=== PATIENT | male | born 1995 | race Caucasian/White ===

== ENCOUNTER 2020-02-01 03:55 | Emergency (ER) | payer OTHER, SELFPAY ==
[2020-02-01 04:06] VITALS: BP 138/79; PULSE 97; RESP 16; TEMP 36.8; O2SAT 98; BMI 18.3
--- NOTE | 2020-02-01 04:12 | ED_ITS ---
HPI - Wound/Laceration General: Chief Complaint: Wound/Laceration Stated Complaint: LIP LAC Time Seen by Provider: 02/01/20 04:09 History of Present Illness: HPI narrative: Mr. Barber is a nice 24-year-old male who was wrestling shortly before arrival when his bottom tooth came up and poked him in the right upper inside portion of his lip. He denies any tooth being loose. He denies any other injuries to his head, neck or otherwise. He came in concerned because he can feel a small cut on the inside of his lip. Review of Systems General: Reports: 10 or more systems reviewed and unremarkable except in HPI and below PFSH ED PFSH: Medical History No pertinent past medical history Social History Smoking and tobacco status: current every day smoker Physical Exam Const: COMMON NORMALS: no apparent distress, oriented x3, no limitations, healthy appearing and well nourished EXAM LIMITATIONS: no altered mental status GENERAL APPEARANCE: cooperative, well kempt and well developed ORIENTATION/CONSCIOUSNESS: Yes awake HENMT: COMMON NORMALS: normocephalic, head/scalp atraumatic, hearing grossly normal bilaterally, external ears normal, EAC's normal, external nose normal and moist oral mucous membranes HEAD & SCALP: normal to inspection, normocephalic and atraumatic FACE & SINUS: normal facial exam and face symmetric NOSE: external nose normal and nares normal EXTERNAL EAR: Yes external ears normal EXTERNAL AUDITORY CANAL: EAC's normal MOUTH: tongue normal and other (Small 1 cm laceration to the inner buccal mucosa of the upper inner lip on the right. No active bleeding.) TEETH & GINGIVA: Yes other (Dentition intact without loose tooth.) Eye: COMMON NORMALS: PERRL, EOMs intact bilaterally, conjunctivae normal and no scleral icterus GENERAL EYE: normal appearance of both eyes and normal light reflex CONJUNCTIVA: Yes conjunctivae normal SCLERA: sclerae normal CORNEA: Yes corneas normal PUPIL: Yes PERRL DIRECT OPHTHALMOSCOPY: Yes normal light reflex Neck/C-Spine: COMMON NORMALS: full ROM, no lymphadenopathy, supple, no meningeal signs and no JVD GENERAL: Yes normal visual inspection and Yes trachea midline CERVICAL SPINE: Yes cervical ROM normal Chest: COMMONS NORMALS: inspection of chest normal and palpation of chest normal Resp: COMMON NORMALS: normal respiratory effort, no retractions, no use of accessory muscles and clear to auscultation bilaterally EFFORT & INSPECTION: Yes able to speak in complete sentences AUSCULTATION: clear to auscultation bilaterally Cardio: COMMON NORMALS: no JVD, regular rate, regular rhythm, S1 normal heart sound, S2 normal heart sound, no gallops, no clicks, no murmurs and no rub JUGULAR VENOUS DISTENTION: no JVD RATE: regular rate RHYTHM: regular rhythm HEART SOUNDS: S1 normal and S2 normal GI: COMMON NORMALS: soft to palpation, non-tender, no hepatosplenomegaly and no masses INSPECTION: Yes normal to inspection PALPATION: Yes soft and Yes no hepatosplenomegaly : COMMON NORMALS: Yes no CVA tenderness BLADDER/KIDNEY EXAM: Yes no CVA tenderness Back/Pelvis: COMMON NORMALS: no CVA tenderness, thoracic and lumbar spine normal to inspection, no thoracic nor lumbar tenderness and thoraco-lumbar ROM normal Extremity: COMMON NORMALS: normal to inspection, full ROM, normal capillary refill, no joint enlargement, no clubbing, cyanosis or edema and no calf tenderness Neuro: COMMON NORMALS: oriented x3, CN's II-XII intact bilaterally, moves all extremities, no focal motor deficits and no sensory deficits noted MENINGEAL SIGNS: Yes no meningeal signs Psych: COMMON NORMALS: mental status grossly normal, thought process normal, cooperative, affect normal, speech normal and activity/motor behavior normal APPEARANCE: Yes well kempt SPEECH: Yes normal speech THOUGHT PROCESS: normal thought process Skin: COMMON NORMALS: no rashes or lesions noted, skin turgor normal, no jaundice, no petechiae and no mottling GENERAL SKIN EXAM: no rashes or lesions noted and turgor normal Course Vital Signs: Vital signs: Vital Signs Temperature 98.2 F 02/01/20 04:06 Pulse Rate 97 02/01/20 04:06 Respiratory Rate 16 02/01/20 04:06 Blood Pressure 138/79 02/01/20 04:06 Pulse Oximetry 98 02/01/20 04:06 MDM - Wound/Laceration MDM Narrative: Medical decision making narrative: Patient had no loose tooth and his laceration was in the inside of the mouth. I informed him that we do not suture these especially as small as his laceration is secondary to risk of infection. He understands this and denies having any questions and agrees with the treatment plan of oral antibiotics. He agrees to return should his symptoms change or worsen. Discharge Plan Discharge Patient Disposition: Home, Self-Care Clinical Impression: Laceration Condition: Stable Prescriptions: New Cleocin HCl 150 mg capsule 300 mg PO Q6H 10 Days Qty: 80 RF: 0 Discharge Orders: Discharge Order (Routine); Ordered 02/01/20 Ordered By: Brielle Colvin Referrals: Jeanmarie Portillo MD [Physician] - 1-3 days Discharge Diet: Advance as tolerated Discharge Activity: Increase activity as tolerated Patient Instructions: Laceration (ED) Activity Restrictions/Additional Instructions: Keep your wound clean and use mouthwash twice daily. Take the antibiotics as I have prescribed. Return to the ER for worsening pain, uncontrolled bleeding, or for any other cause for concern. Please return to the ER immediately for any of the signs or symptoms listed on your discharge instruction sheets, worsening/changing of your symptoms, you are not getting better as quickly as expected, or for ANY other cause or concerns. Coding Level of Care Code ED Sharepoint Trainer for Tristan Fernandez
== END 2020-02-01 04:25 | disposition home or self-care (01) ==
LOC: ER 04:14
PROVIDERS: Emergency Provider Emergency Medicine
DX: S01.511A Laceration without foreign body of lip, initial encounter (principal); W26.8XXA Contact with other sharp object(s), not elsewhere classified, initial encounter; Y93.72 Activity, wrestling; F17.210 Nicotine dependence, cigarettes, uncomplicated
CPT/HCPCS: 12345; 99281; 99282

== ENCOUNTER → 2020-06-14 11:00 | Outpatient (BNVA) | payer OTHER, SELFPAY | PROVIDERS: Visit Provider Nurse Practitioner Family | DX: J06.9 Acute upper respiratory infection, unspecified (principal); Z78.9 Other specified health status; Z20.828 Contact with and (suspected) exposure to other viral communicable diseases | CPT/HCPCS: 87635 ==

== ENCOUNTER 2020-08-19 14:40 | Emergency (ER) | payer OTHER, SELFPAY ==
[2020-08-19 14:58] VITALS: BP 112/66; PULSE 85; RESP 16; TEMP 36.4; O2SAT 94; BMI 17.6
--- NOTE | 2020-08-19 15:10 | ED_ITS ---
HPI - Male Genitourinary General: Chief complaint: Urogenital-Male Stated complaint: hematuria Time Seen by Provider: 08/19/20 15:05 Source: patient Mode of arrival: ambulatory Limitations: no limitations History of Present Illness: HPI Narrative: 24-year-old male states he had hematuria over the last 6 days with it worsening today. He states his urine has been orange in color. He denies any pain. He denies any difficulty urinating or burning with urination. Denies any penile discharge. Denies any worsening or improving factors. Associated symptoms: Reports hematuria; Deny nausea or vomiting Review of Systems Const: Denies: fever(s), chills, body aches or change in appetite Eyes: Denies: blurry vision or eye discomfort ENMT: Denies: throat pain or dental pain Card: Denies: chest pain Resp: Denies: dyspnea GI: Denies: abdominal pain, nausea, vomiting or diarrhea : Reports: hematuria Musc: Denies: neck pain or back pain Skin/Breast: Denies: rash Neuro: Denies: headache(s) Psych: Denies: depression David/Lymph: Denies: easy bruising All/Imm: Denies: urticaria PFSH ED PFSH: Medical History No pertinent past medical history Social History Smoking and tobacco status: current every day smoker Alcohol intake: current Alcohol intake frequency: 0-2 Drinks per Day Substance/Drug Use: never Physical Exam Const: COMMON NORMALS: no acute distress, patient oriented x3 and healthy appearing HENMT: COMMON NORMALS: normocephalic and atraumatic HEAD & SCALP: normocephalic and atraumatic Eye: COMMON NORMALS: Equal, round and reactive pupils present and EOMs intact bilaterally PUPIL: Yes Equal, round and reactive pupils present Neck/C-Spine: COMMON NORMALS: full ROM and supple Chest: COMMONS NORMALS: normal inspection of the chest and normal palpation of entire chest wall Resp: COMMON NORMALS: normal respiratory effort, No retractions, No use of accessory muscles and clear to auscultation bilaterally AUSCULTATION: clear to auscultation bilaterally Cardio: COMMON NORMALS: regular rate, regular rhythm and No murmurs present (Cardio) RATE: regular rate RHYTHM: regular rhythm GI: COMMON NORMALS: Normal to inspection, nondistended, normoactive bowel sounds present, Soft to palpation, non-tender and no masses PALPATION: Yes Soft to palpation Extremity: COMMON NORMALS: normal to inspection and full ROM Neuro: COMMON NORMALS: patient oriented x3, moves all extremities and no focal motor deficits Psych: COMMON NORMALS: mental status grossly normal, Normal thought process present and cooperative THOUGHT PROCESS: Normal thought process present Skin: COMMON NORMALS: no rashes or lesions noted and no wounds GENERAL SKIN EXAM: no rashes or lesions noted Course Vital Signs: Vital signs: Vital Signs Temperature 97.5 F L 08/19/20 14:58 Pulse Rate 67 08/19/20 15:29 Respiratory Rate 14 08/19/20 15:29 Blood Pressure 122/80 08/19/20 15:29 Pulse Oximetry 99 08/19/20 15:29 MDM - Male MDM Narrative: Medical decision making narrative: Patient presents here with hematuria. Patient's blood work including CT are normal. No acute finding for his hematuria. We'll set patient up with follow-up with Dr. Paulson. He is having no pain and is well-appearing here. He is stable for discharge and return if worsening. He understands agrees to this plan. Lab Data: Labs: Lab Results 08/19/20 08/19/20 08/19/20 Range/Units 15:20 15:20 15:20 WBC 9.1 (4.0-10.0) 10^3/ uL RBC 5.10 (4.1-5.3) 10^6/u L Hgb 14.8 (11.7-16.6) g/dL Hct 45.5 (42.0-52.0) % MCV 89.2 (80-94) fL MCH 29.0 (28.0-34.0) pg MCHC 32.5 (30.0-36.0) g/dL RDW 13.0 (12.1-15.1) % Plt Count 251 (130-400) 10^3/c mm MPV 10.2 (7.4-10.4) fL Neut % (Auto) 60.3 % Lymph % (Auto) 25.9 % [place] % (Auto) 8.7 % Eos % (Auto) 4.1 % Baso % (Auto) 0.8 % Neut # (Auto) 5.50 (1.8-7.7) 10^3/u L Lymph # (Auto) 2.4 (0.8-4.8) 10^3/u L [place] # (Auto) 0.8 (0.2-0.9) 10^3/u L Eos # (Auto) 0.4 (0.0-0.8) 10^3/u L Baso # (Auto) 0.1 (0.0-0.1) 10^3/u L Nucleated RBC % (a uto) 0 % Nucleated RBCs # 0.0 /100WBC Sodium 141 (136-145) mmol/L Potassium 3.7 (3.5-5.1) mmol/L Chloride 104 (98-107) mmol/L Carbon Dioxide 28 (22-29) mmol/L Anion Gap 12.7 (5-19) BUN 15 (6-20) mg/dL Creatinine 0.7 (0.7-1.2) mg/dL GFR Calculation 137.4 H (90-130) mL/min Glucose 96 (65-115) mg/dL Calculated Osmolal ity 293 (285-295) mOsm/k g Calcium 9.1 (8.5-10.5) mg/dL Total Bilirubin 1.3 H (0.15-1.2) mg/dL AST 18 (0-40) U/L ALT 10 (0-41) U/L Alkaline Phosphata se 126 (40-130) IU/L Total Protein 7.6 (6.6-8.7) g/dL Albumin 4.8 (3.5-5.2) g/dL Globulin 2.8 (1.3-4.6) g/dL Urine Color Yellow (Yellow) Urine Appearance Clear (CLEAR) Urine pH 7 (5-7) Ur Specific Gravit y 1.010 (1.005-1.030) Urine Protein Trace (Negative) Urine Glucose (UA) Norm (Normal) Urine Ketones 1+ H (Negative) Urine Blood 3+ H (Negative) Urine Nitrate Negative (Negative) Urine Bilirubin Neg (Negative) Urine Urobilinogen 4 H (Negative) mg/dL Ur Leukocyte Shanon ase Negative (Negative) Urine RBC >100 H (0-2) /hpf Urine WBC 0-4 H (0-5) /hpf Ur Squamous Epith Cells None (0-5) /hpf Amorphous Sediment Not Reportable Urine Bacteria Trace (NONE) /hpf Imaging Data: CT Abd/Pel: Attestation: I personally reviewed and interpreted this imaging study as follows: Radiologist's impression: [facility] [address] [place] [address] CT Scan Report Signed Patient: Jesús Barber Unit #: [id number] : [id number] Age/Sex: 24 / M ADM Date: 08/19/20 Loc: ER Room/Bed: Attending Dr: Ordering Provider/Ordering MD: Amish Fernandez MD Date of Service: 08/19/20 Procedure(s): CT abdomen pelvis wo con [id number] Accession Number(s): [id number] Report Number: [id number] PROCEDURE INFORMATION: Exam: CT Abdomen And Pelvis Without Contrast Exam date and time: 08/19/2020 3:10 PM Age: 24 years old Clinical indication: Other: Hematuria TECHNIQUE: Imaging protocol: Computed tomography of the abdomen and pelvis without contrast. Radiation optimization: All CT scans at this facility use at least one of these dose optimization techniques: automated exposure control; mA and/or kV adjustment per patient size (includes targeted exams where dose is matched to clinical indication); or iterative reconstruction. COMPARISON: No relevant prior studies available. RADIATION DOSE METRICS: Total DLP (mGy-cm): 243.92 FINDINGS: Lungs: The lung bases appear unremarkable. Liver: The liver is unremarkable in appearance. Gallbladder and bile ducts: No calcified gallstones in the gallbladder. No gallbladder wall thickening. No pericholecystic fluid. No biliary dilatation. Pancreas: The pancreas is normal in appearance. Spleen: The spleen is normal in size and appearance. Adrenal glands: The adrenal glands appear within normal limits. Kidneys and ureters: Nonobstructing 4 mm right renal calculus. No left renal calculi. No hydronephrosis on either side. No obstructive uropathy. Stomach and bowel: No acute gastric abnormality demonstrated. Moderate retained stool in the colon. No inflammatory change of the colon. Appendix: No evidence of appendicitis. Intraperitoneal space: No pneumoperitoneum. No significant fluid collection. Vasculature: The aorta is unremarkable as demonstrated. Lymph nodes: No pathologically enlarged lymph nodes are demonstrated. Urinary bladder: Urinary bladder is unremarkable as demonstrated. Reproductive: Unremarkable as visualized. Bones/joints: No fracture or other acute osseous abnormality. Soft tissues: The soft tissues appear unremarkable. Other findings: The unopacified small bowel is unremarkable. CT/CT abdomen pelvis wo con [id number] IMPRESSION: 1. Nonobstructing 4 mm right renal calculus. No left renal calculi. No hydronephrosis on either side. No obstructive uropathy. 2. Urinary bladder is unremarkable as demonstrated. 3. The examination is otherwise unremarkable. Discharge Plan Discharge Patient Disposition: Home Clinical Impression: Hematuria Qualifiers: Hematuria type: unspecified type Qualified Code(s): R31.9 - Hematuria, unspecified Condition: Stable Prescriptions: No Action No Known Home Medications RF: 0 Discharge Orders: Discharge Order (Routine); Ordered 08/19/20 Ordered By: Amish Fernandez Referrals: Raphael Paulson MD [Physician] - 1-3 days Brandon Omer MD [Primary Care Provider] - Discharge Diet: Advance as tolerated Discharge Activity: Resume usual activity Patient Instructions: Acute Hematuria (ED) Coding Level of Care Code ED Electron Beam Welder for Chg Fwd Exam Comprehensive
[2020-08-19 15:29] VITALS: BP 122/80; PULSE 67; RESP 14; O2SAT 99
[2020-08-19] MEDS: sodium chloride 0.9% 1,000 ML 999 ML IV (15:41)
[2020-08-19 15:42] LABS: Basophils # 0.1 10^3/uL (0.0-0.1); Basophils % 0.8 %; Eosinophils # 0.4 10^3/uL (0.0-0.8); Eosinophils % 4.1 %; Hematocrit 45.5 % (42.0-52.0); Hemoglobin 14.8 g/dL (11.7-16.6); Lymphocytes # 2.4 10^3/uL (0.8-4.8); Lymphocytes % 25.9 %; Mean Corpuscular HGB Conc 32.5 g/dL (30.0-36.0); Mean Corpuscular Volume 89.2 fL (80-94); Mean Platelet Volume 10.2 fL (7.4-10.4); Monocytes # 0.8 10^3/uL (0.2-0.9); Monocytes % 8.7 %; Neutrophils % 60.3 %; Nucleated Red Blood Cells % 0 %; Platelet Count 251 10^3/cmm (130-400); White Blood Count 9.1 10^3/uL (4.0-10.0)
[2020-08-19 15:57] LABS: Alanine Aminotransferase 10 U/L (0-41); Albumin Level 4.8 g/dL (3.5-5.2); Alkaline Phosphatase 126 IU/L (40-130); Anion Gap 12.7 (5-19); Aspartate Amino Transferase 18 U/L (0-40); Blood Urea Nitrogen 15 mg/dL (6-20); Calcium 9.1 mg/dL (8.5-10.5); Carbon Dioxide 28 mmol/L (22-29); Chloride 104 mmol/L (98-107); Creatinine Clr Calc Pharmacy 134.5477; Globulin 2.8 g/dL (1.3-4.6); Glomerular Filtration Rate 137.4 mL/min (90-130); Glucose 96 mg/dL (65-115); Osmolality Calculated 293 mOsm/kg (285-295); Potassium 3.7 mmol/L (3.5-5.1); Sodium 141 mmol/L (136-145); Total Bilirubin 1.3 mg/dL (0.15-1.2); Total Protein 7.6 g/dL (6.6-8.7)
[2020-08-19 16:15] LABS: Add Urine Microscopic? YES; Bilirubin Urine Neg (Negative); Blood Urine 3+ (Negative); Glucose Urine UA Norm (Normal); Ketones Urine 1+ (Negative); Leukocyte Esterase Urine Negative (Negative); Nitrate Urine Negative (Negative); Protein Urine Trace (Negative); Urine Appearance Clear (CLEAR); Urine Color Yellow (Yellow); Urobilinogen Urine 4 mg/dL (Negative); pH Urine 7 (5-7)
[2020-08-19 16:17] LABS: Add Urine Culture? Yes; Bacteria Urine TRACE /hpf; RBC Urine >100 /hpf (0-2); WBC Urine 0-4 /hpf (0-5)
--- NOTE | 2020-08-20 10:42 | DCPLANNER ---
manager social work had message to schedule a follow up appointment for patient with Dr. Paulson. manager social work called the office of Dr. Paulson, spoke with Katie, gave clinic patients information. manager social work was told that patients information would be printed and reviewed. Clinic will call patient with appointment information.
--- NOTE | 2020-08-23 15:57 | DCPLANNER ---
Patient has a follow up appointment scheduled for Thursday, August 27, [address] at 2:[address] Paulson. Clinic will call patient with appointment information.
--- NOTE | 2020-09-12 14:35 | DCPLANNER ---
Patient had a follow up appointment scheduled for 08.27.[address] Paulson, when clinic called to inform patient of the scheduled appointment, patients stated that patient would need to call and reschedule appointment. Patient has not called to reschedule the appointment at this time.
== END 2020-08-19 16:58 | disposition home or self-care (01) ==
PROVIDERS: Emergency Provider Emergency Medicine; PCP Family Medicine
DX: R31.9 Hematuria, unspecified (principal); F17.210 Nicotine dependence, cigarettes, uncomplicated
CPT/HCPCS: 12345; 74176; 80053; 81001; 85025; 87086; 96360; 99282; 99283; J7030

== ENCOUNTER 2023-02-15 05:06 | Emergency (ER) | payer SELFPAY ==
[2023-02-15 05:27] VITALS: BP 136/85; PULSE 83; RESP 18; TEMP 36.9; O2SAT 97; BMI 19.0
[2023-02-15 06:05] VITALS: RESP 16
[2023-02-15] MEDS: amoxicillin-clav 875-125 mg Tablet 1 TAB PO (06:05)
[2023-02-15] MEDS: dexamethasone 4 mg Tablet 10 MG PO (06:05)
[2023-02-15] MEDS: oxyCODONE-APAP 5-325 mg Tablet 2 TAB PO (06:05)
[2023-02-15 06:07] VITALS: BP 128/68; PULSE 91; RESP 16; O2SAT 99
--- NOTE | 2023-02-15 18:40 | W.ED.EAR ---
HPI - Ear Problem General: Chief complaint: Ear Stated complaint: right ear pain Time Seen by Provider: 02/15/23 05:40 Source: patient History of Present Illness: 27-year-old male who awoke this morning with sudden onset right severe ear pain, followed by ear bleeding. He notes the sound is muffled to the right ear, and he has ringing in that ear. No fever. No congestion. No other respiratory symptoms. He has had tympanic membrane rupture earlier in life, and this feels similar. MD Complaint: ear pain Location: right ear Duration: constant Relieving factors: nothing Exacerbating factors: nothing Associated symptoms: Reports ear or mastoid pain, hearing loss and tinnitus; Denies external ear pain, fever(s), headache(s), neck pain or rhinorrhea Treatment prior to arrival: none Review of Systems Const: Denies: fever(s) Eyes: Denies: change in vision ENMT: Reports: ear or mastoid pain and tinnitus; Denies: throat pain Card: Denies: chest pain Resp: Denies: dyspnea, productive cough or non-productive cough GI: Denies: vomiting Musc: Denies: neck pain Neuro: Denies: headache(s) PFSH ED PFSH: Medical History No pertinent past medical history Social History Smoking and tobacco status: current every day smoker Alcohol intake: current Alcohol intake frequency: 0-2 Drinks per Day Substance/Drug Use: never Physical Exam Const: GENERAL APPEARANCE: cooperative and in distress (in pain) NUTRITIONAL APPEARANCE: thin HENMT: COMMON NORMALS: normocephalic, atraumatic, external ears normal and Normal external nose present HEAD & SCALP: normocephalic and atraumatic FACE & SINUS: normal facial exam and face symmetric NOSE: Normal external nose present and Normal nares present EXTERNAL EAR: Yes external ears normal TYMPANIC MEMBRANE: TM normal on the left and TM abnormal TM laterality: right Details: erythematous, loss of landmarks, perforation and other (Old blood present) Eye: COMMON NORMALS: Equal, round and reactive pupils present and EOMs intact bilaterally PUPIL: Yes Equal, round and reactive pupils present Neck/C-Spine: GENERAL: Yes trachea midline Chest: CHEST: Yes Symmetrical chest wall rise Resp: COMMON NORMALS: normal respiratory effort, No use of accessory muscles and clear to auscultation bilaterally AUSCULTATION: clear to auscultation bilaterally Cardio: COMMON NORMALS: regular rate and regular rhythm RATE: regular rate RHYTHM: regular rhythm Course Vital Signs: Vital signs: Vital Signs Temperature 98.4 F 02/15/23 05:27 Pulse Rate 91 02/15/23 06:07 Respiratory Rate 16 02/15/23 06:07 Blood Pressure 128/68 02/15/23 06:07 Pulse Oximetry 99 02/15/23 06:07 Oxygen Delivery Me thod Room Air 02/15/23 05:27 MDM - Ear Medical Decision Making 27-year-old male with sudden onset spontaneous TM rupture on the right. Suspect congestion. He is given a dose of dexamethasone, he will be covered with antibiotics both in drop form and orally. Pain control with NSAIDs. Outpatient follow-up. Discharge Plan Discharge Patient Disposition: Home Clinical Impression: Otitis media, Tympanic membrane perforation Condition: Stable Prescriptions: New Ciprodex 0.3-0.1 % drops,suspension 4 drp otic (ear) BID 7 Days Qty: 7.5 0RF amoxicillin-pot clavulanate 875-125 mg tablet 1 tab PO BID Qty: 14 0RF ketorolac 10 mg tablet 10 mg PO TID PRN (Reason: pain) Qty: 10 0RF No Action naproxen 500 mg tablet 500 mg PO BID 10 Days Qty: 20 0RF Discharge Orders: Discharge ED (Routine); Ordered 02/15/23 Ordered By: Goldy Lott Referrals: Brandon Omer MD [Primary Care Provider] - 1-3 days Patient Instructions: Ear Infection (ED), Earache (ED), Opioid Safety, Pain Management Coding Level of Care Code ED Top Precipitator Operator Helper for Tristan Fernandez
== END 2023-02-15 06:12 | disposition home or self-care (01) ==
PROVIDERS: Emergency Provider Emergency Medicine; PCP Family Medicine
DX: H66.91 Otitis media, unspecified, right ear (principal); H72.91 Unspecified perforation of tympanic membrane, right ear; F17.210 Nicotine dependence, cigarettes, uncomplicated
CPT/HCPCS: 99283; J8540

== ENCOUNTER → 2023-11-10 15:26 | Outpatient (BNVA) | payer BC, SELFPAY | PROVIDERS: PCP Family Medicine; Visit Provider Family Medicine | DX: Z13.220 Encounter for screening for lipoid disorders (principal); R10.9 Unspecified abdominal pain; Z51.81 Encounter for therapeutic drug level monitoring | CPT/HCPCS: 80053; 80061; 83690; 85025; 86141 ==

== ENCOUNTER 2024-02-28 14:47 | Emergency (ER) | payer BC, SELFPAY ==
[2024-02-28 14:50] VITALS: BP 101/62; PULSE 82; RESP 15; TEMP 37; O2SAT 98
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
[2024-02-28] MEDS: ibuprofen 600 mg Tablet PO (15:26)
[2024-02-28 16:15] VITALS: BP 101/62; PULSE 82; RESP 15; TEMP 37; O2SAT 98
[2024-02-28 16:28] VITALS: BP 101/62; PULSE 82; RESP 15; TEMP 37; O2SAT 98
--- NOTE | 2024-02-28 17:57 | DCPLANNER ---
Sent followup request to the ortho clinic 02/28/24 [id number]
== END 2024-02-28 16:28 | disposition home or self-care (01) ==
PROVIDERS: Emergency Provider Nurse Practitioner Family; PCP Family Medicine
DX: S42.024A Nondisplaced fracture of shaft of right clavicle, initial encounter for closed fracture (principal); F17.210 Nicotine dependence, cigarettes, uncomplicated; V86.56XA Driver of dirt bike or motor/cross bike injured in nontraffic accident, initial encounter
CPT/HCPCS: 71045; 72040; 73000; 99284; L3650

== ENCOUNTER → 2024-03-02 15:08 | Outpatient (BNVA) | payer BC, SELFPAY | PROVIDERS: PCP Family Medicine; Referring Provider Nurse Practitioner Family; Visit Provider Specialist | DX: S42.024A Nondisplaced fracture of shaft of right clavicle, initial encounter for closed fracture (principal); V86.56XA Driver of dirt bike or motor/cross bike injured in nontraffic accident, initial encounter; Z01.818 Encounter for other preprocedural examination | CPT/HCPCS: 36415; 73000; 80053; 81001; 85025 ==

== ENCOUNTER 2024-03-03 08:09 | Day surgery (SDC) | payer BC, SELFPAY ==
[2024-03-03] VITALS (13 sets, daily range): BP systolic 97–123; BP diastolic 57–78; PULSE 60–77; RESP 14–20; TEMP 36.2–36.6; O2SAT 97–100; BMI 19.1
--- NOTE | 2024-03-03 | XR_ITS ---
WS: [id number] C-ARM RADIOGRAPHS RIGHT CLAVICLE; 3 IMAGES HISTORY: ELY LAST COMPARISON: 03/02/2024 Intraoperative imaging during reduction and fixation of the mid RIGHT clavicle fracture now in good a lignment. Plate and screw fixation across the fracture has been applied. XR/[place] [id number] IMPRESSION: Intraoperative fixation and reduction of the RIGHT clavicular fracture.
[2024-03-03] MEDS: sodium chloride 0.9% 1,000 ML 30 ML IV (08:52)
[2024-03-03] MEDS: acetaminophen 1,000 MG/100 ML PIGGYBACK 400 MG IV (08:54)
[2024-03-03] MEDS: CELEcoxib 200 mg Capsule 400 MG PO (08:54)
--- NOTE | 2024-03-03 08:54 | W.PM.OPSUD ---
Surgery/Procedure H&P Update DATE OF PROCEDURE: March 03, 2024 DATE H&P PERFORMED: 03/02/24 H&P UPDATE INFORMATION: I have reviewed H&P completed within last 30 days, I have examined patient prior to procedure, No changes to prior documentation and H&P is in [facility] EMR on date indicated PLANNED PROCEDURE: Operation Date: 03/03/24 11:45 Proposed Procedures p ORIF Clavicle(Right) - Pat Leija MD Related Problem List Diagnoses (1) Clavicle fracture, shaft: Qualifiers: Encounter type: initial encounter Fracture alignment: nondisplaced Fracture type: closed Laterality: right Qualified Code(s): S42.024A - Nondisplaced fracture of shaft of right clavicle, initial encounter for closed fracture
--- NOTE | 2024-03-03 09:03 | ANES.PREANE2 ---
Pre-Anesthetic Assessment Height/Weight: Height 1.83 m Operation Date: 03/03/24 11:45 Proposed Procedures p ORIF Clavicle(Right) - Pat Leija MD Familial anesthetic complications: None Was Beta Shi taken within 24 hours: N/A Was Clonidine taken within 24 hours: N/A Last intake: > 8 hrs Social No alcohol and No tobacco Exam alert, oriented x 3, clear to auscultation bilaterally and regular rate & rhythm Airway Mallampati: Class I Dentition: full Pulmonary Asthma (childhood asthma) Anesthetic Plan ASA status: 2 Anesthesia: General Risk of > 500 ml blood loss (7ml/kg in children): No Medications/Allergies Home Medications Medication Instructions Recorded Confirmed Last Taken Type omeprazole 40 mg capsule,delayed 40 mg PO DAILY #30 caps 11/10/23 03/03/24 Unknown Rx release hydrocodone 5 mg-acetaminophen 325 1 tab PO Q6H PRN pain 5 days #20 03/01/24 03/03/24 03/02/24 Rx mg tablet tabs ibuprofen 800 mg tablet 800 mg PO Q8H PRN pain #60 tabs 03/01/24 03/03/24 03/02/24 Rx Allergies Allergy/AdvReac Type Severity Reaction Status Date / Time No Known Allergies Allergy Verified 03/02/24 15:20 Current Medications Generic Name Dose Route Start Last Admin Trade Name Freq PRN Reason Stop Dose Admin Sodium Chloride 1,000 mls @ 30 mls/hr 03/03/24 09:00 03/03/24 08:52 Sodium Chloride 0.9% IV 03/04/24 08:59 30 mls/hr .Q24H MONICA Administration PFSH Anesthesia Medical History No pertinent past medical history Social History Smoking and tobacco/nicotine status: current every day tobacco/nicotine user cigarettes Packs smoked per day: 1 Alcohol intake: current Alcohol intake frequency: 0-2 Drinks per Day Alcohol type: hard liquor Substance/Drug Use: current Current occupation: [employer] Anesthesia Cardiac Studies: No Data to Display
[2024-03-03] MEDS: ceFAZolin 2,000 MG in sodium chloride 0.9% (plus) 50 ML 100 MG IV (09:11)
[2024-03-03] MEDS: ceFAZolin 1,000 mg SDV 1000 MG IRRIGATION (10:01)
[2024-03-03] MEDS: fentaNYL 50 mcg/mL INJ 2mL IVP (11:20)
--- NOTE | 2024-03-03 11:43 | ANES.PROC ---
Anesthesia Procedures Procedure/Date: 03/03/24 Nerve Block ^: Nerve Block 1: Main Anesthesia: general anesthesia Time Out Performed: Yes Consent: requested by attending/covering physician, from patient, from other, risks and benefits reviewed and patient agrees to proceed Nerve block location: interscalene (R) Anesthesia monitors applied: pulse oximetry, EKG, BP cuff and oxygen Nerve block position: semi sitting Anesthetic Used: ropivicaine 0.5% (20 ml) Ultrasound used to: recognize landmarks, visualize and ID brachial plexus, in supraclavicular region and visualize and ID interscalene groove Nerve Stimulator Used?: No Interscalene/Femoral BLK: 2 stimuplex 22 g needle used for position and inplane approach, visualize local anesthetic spread and no vascular puncture identified Patient Tolerated Procedure: well Complications: none
--- NOTE | 2024-03-03 11:55 | SUR.PHASEII ---
ROM AND SENSATION OF FINGERS OF RIGHT HAND.
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
== END 2024-03-03 13:15 | disposition home or self-care (01) ==
PROVIDERS: PCP Family Medicine; Visit Provider Specialist
PROC: (CPT 23515; principal; 2024-03-03 11:35)
DX: S42.021A Displaced fracture of shaft of right clavicle, initial encounter for closed fracture (principal); V86.56XA Driver of dirt bike or motor/cross bike injured in nontraffic accident, initial encounter; Y93.89 Activity, other specified
CPT/HCPCS: 23515; 73000; 76000; C1713; J0131; J0690; J1100; J1170; J1885; J2250; J2405; J2704; J2710; J2795; J3010; J3490; J7030

== ENCOUNTER → 2024-03-23 14:43 | Outpatient (BNVA) | payer BC, SELFPAY | PROVIDERS: PCP Family Medicine; Visit Provider Specialist | DX: S42.024D Nondisplaced fracture of shaft of right clavicle, subsequent encounter for fracture with routine healing (principal); X58.XXXD Exposure to other specified factors, subsequent encounter | CPT/HCPCS: 73000 ==

== ENCOUNTER 2024-04-25 17:33 | Emergency (ER) | payer BC, SELFPAY ==
[2024-04-25 17:40] VITALS: BP 123/83; PULSE 82; RESP 18; TEMP 36.7; O2SAT 98; BMI 18.8
[2024-04-25 18:45] LABS: Basophils # 0.1 10^3/uL (0.0-0.1); Basophils % 0.7 %; Eosinophils # 0.5 10^3/uL (0.0-0.8); Eosinophils % 6.2 %; Hematocrit 43.4 % (37-53); Lymphocytes # 3.2 10^3/uL (0.8-4.8); Lymphocytes % 36.3 %; Mean Corpuscular HGB Conc 33.2 g/dL (30-55); Mean Corpuscular Hemoglobin 29.1 pg (27-33); Mean Corpuscular Volume 87.9 fl (82-101); Mean Platelet Volume 10.1 fL (7.4-10.4); Monocytes # 0.8 10^3/uL (0.2-0.9); Neutrophils # 4.19 10^3/uL (1.8-7.7); Neutrophils % 47.7 %; Nucleated Red Blood Cells % 0 %; Platelet Count 255 10^3/cmm (157-399); Red Blood Count 4.94 10^6/uL (3.85-5.65); Red Cell Distribution Width 13.6 % (12.1-15.1); White Blood Count 8.78 10^3/uL (3.29-11.43)
[2024-04-25 18:47] LABS: Alanine Aminotransferase 14 U/L (0-41); Alkaline Phosphatase 146 U/L (40-130); Anion Gap 14.8 (5-19); Aspartate Amino Transferase 19 U/L (0-40); Blood Urea Nitrogen 12 mg/dL (6-20); Calcium 9.4 mg/dL (8.5-10.5); Carbon Dioxide 27 mmol/L (22-29); Chloride 100 mmol/L (98-107); Creatinine Clr Calc Pharmacy 134.8628; Globulin 2.9 g/dL (1.3-4.6); Glomerular Filtration Rate 133.3 mL/min (90-130); Glucose 115 mg/dL (65-115); Lipase 32 U/L (13-60); Osmolality Calculated 287 mOsm/kg (285-295); Potassium 3.8 mmol/L (3.5-5.1); Sodium 138 mmol/L (136-145); Total Bilirubin 0.7 mg/dL (0.15-1.2); Total Protein 7.9 g/dL (6.6-8.7)
== END 2024-04-25 19:55 | disposition left against medical advice (07) ==
PROVIDERS: Emergency Medicine; Emergency Provider Family Medicine; PCP Family Medicine
DX: Z53.21 Procedure and treatment not carried out due to patient leaving prior to being seen by health care provider (principal)
CPT/HCPCS: 36415; 80053; 83690; 85025; 99283

== ENCOUNTER → 2024-05-05 13:25 | Outpatient (BNVA) | payer BC, SELFPAY | PROVIDERS: PCP Family Medicine; Visit Provider Family Medicine | DX: R30.0 Dysuria (principal); N39.0 Urinary tract infection, site not specified | CPT/HCPCS: 81000; 87086 ==